=== PATIENT | female | born 1940 | race Caucasian/White ===

== ENCOUNTER 2020-06-14 14:54 | Inpatient (IN) | payer MEDICARE, SELFPAY ==
[~2020-06-14] VITALS: Ht 165.1 cm; Wt 103.1 kg
[2020-06-14 15:45] LABS: HEMATOCRIT 43.7 % (37.0-47.0); MEAN CORPUSCULAR HGB 29.2 pg (27.0-31.0); MEAN CORPUSCULAR HGB CONC 31.1 g/dl (33.0-37.0); MEAN PLATELET VOLUME 12.1 fl (9.6-12.3); PLATELET COUNT AUTOMATED 176 10*3/uL (130-400); RED BLOOD COUNT 4.65 10*6/uL (4.10-5.10); RED CELL DISTRI WIDTH 13.1 % (0-14.5)
[2020-06-14 15:58] LABS: ACT PARTIAL THROMBO TIME 30.3 SECONDS (20.0-32.1); INTERNATIONAL NORM RATIO 1.1 (2.0-3.5)
[2020-06-14 16:03] LABS: ALBUMIN 3.2 gm/dl (3.1-4.5); CREATININE 2.81 mg/dL (0.55-1.02); POTASSIUM 5.7 mmol/L (3.5-5.1)
[2020-06-14 16:06] LABS: WHITE BLOOD COUNT 43.4 10*3/uL (4.8-10.8)
[2020-06-14 16:07] LABS: TOTAL PROTEIN 7.6 gm/dL (6.4-8.2); TROPONIN I 0.027 ng/ml (<0.045)
[2020-06-14 16:13] LABS: THYROID STIM HORMONE (HS) 1.54 uIU/ml (0.358-4.75)
[2020-06-14 16:40] LABS: TOTAL CELLS COUNTED 100 #CELLS
[2020-06-14 16:41] LABS: BLASTS 1 % (0-0)
[2020-06-14 16:42] LABS: PLATELET SUFFICIENCY NORMAL (NORMAL)
[2020-06-14 17:54] VITALS: BP 132/90
[2020-06-14 18:09] LABS: BILIRUBIN Negative (Negative); BLOOD 2+ (Negative); CLARITY Cloudy (Clear); COLOR Yellow (Yellow); GLUCOSE 3+ (Negative); KETONE Negative (Negative); LEUKO ESTERASE Negative (Negative); NITRITE Negative (Negative); SPECIFIC GRAVITY 1.025 (1.001-1.030); UROBILINOGEN 0.2 E.U./dl (0.0-1.0)
[2020-06-14] MEDS ORDERED: LIPITOR40 MG PO (18:23)
[2020-06-14] MEDS ORDERED: AZOPT10 ML OPH (18:23)
[2020-06-14] MEDS ORDERED: COMBIGAN 0.2%-010 ML OP (18:24)
[2020-06-14] MEDS ORDERED: LUMIGAN50 DRP OPH (18:25)
[2020-06-14] MEDS ORDERED: HYDRALAZINE HYD50 MG PO (18:26)
[2020-06-14] MEDS ORDERED: KLOR-CON M2020 ME1 PO (18:27)
[2020-06-14] MEDS ORDERED: COL-RITE250 MG PO (18:28)
[2020-06-14] MEDS ORDERED: FAMOTIDINE40 MG PO (18:29)
[2020-06-14] MEDS ORDERED: ALLOPURINOL100 MG PO (18:30)
[2020-06-14] MEDS ORDERED: BYSTOLIC10 MG PO (18:30)
[2020-06-14] MEDS ORDERED: Zaroxolyn,Diul2.5 MG PO (18:31)
[2020-06-14] MEDS ORDERED: LISINOPRIL2.5 MG PO (18:31)
[2020-06-14] MEDS ORDERED: XARE15TA PO (18:32)
[2020-06-14] MEDS ORDERED: FUROSEMIDE40 MG PO (18:32)
[2020-06-14] MEDS ORDERED: HUMALOG100 UNIT/1 SC (18:34)
[2020-06-14 18:50] LABS: BACTERIA 2+
--- NOTE | 2020-06-14 19:15 | NUR ---
REPORT GIVEN TO ANNELIESE CONDON AT THIS TIME.
[2020-06-14 19:37] VITALS: BP 134/79
--- NOTE | 2020-06-14 19:43 | NUR ---
MARÍA NUMBER [phone]. PATIENT STATES OK TO TALK TO THEM.
[2020-06-14 19:51] VITALS: BP 110/70
--- NOTE | 2020-06-14 20:10 | NUR ---
NOTIFIED DR. PIÑA OF OF 314. STATES HE WILL PUT IN ANOTHER HUMULIN R 10 UNITS.
--- NOTE | 2020-06-14 21:02 | NUR ---
PT. RESTING IN BED. RR EASY AND NON-LABORED. CALL LIGHT WITHIN REACH. WILL CONTINUE TO MONITOR. NO SIGNS OR SYMPTOMS OF DISTRESS AT THIS TIME.
--- NOTE | 2020-06-14 21:08 | NUR ---
PT'S AUNT CALLED IN AND TOLD ME, PT. HAS CHRONIC LEUKEMIA THAT IS STABLE, GOES TO DR. FORTE. PT. ALSO LOST A TOOTH LAST WEEK THAT SHE HIT IN JANUARY. PT'S AUNT IS WORRIED THAT THIS MAY BE THE SOURCE OF INFECTION.
--- NOTE | 2020-06-14 22:04 | NUR ---
AUNT CALLED IN- WANTS PTS. PASSWORD TO BE "JOLENE"
[2020-06-14 22:05] VITALS: BP 160/80
--- NOTE | 2020-06-14 22:58 | NUR ---
TALKED TO DR. PIÑA ABOUT BG OF [address] VALDEZ STATES IT WAS GOOD TO GIVE SLIDING SCALE SQ INSULIN AT THIS TIME.
[2020-06-15] VITALS (7 sets, daily range): BP systolic 140–196; BP diastolic 64–99
--- NOTE | 2020-06-15 00:32 | NUR ---
PT. RESTING IN BED, NO DISTRESS NOTED. CALL LIGHT WITHIN REACH. WILL CONTINUE TO MONITOR. NOT ABLE TO REVIEW MEDS.
--- NOTE | 2020-06-15 01:31 | NUR ---
PICTURES TAKEN OF WOUNDS. CHECKED BG AT THIS TIME-311.
--- NOTE | 2020-06-15 03:21 | NUR ---
PT. RESTING IN BED WITH EYES CLOSED, APPEARS TO BE IN NO DISTRESS AT THIS TIME. CALL LIGHT WITHIN REACH. RR EASY AND NON-LABORED. WILL CONTINUE TO MONITOR.
--- NOTE | 2020-06-15 06:57 | NUR ---
PT. RESTING IN BED WITH EYES CLOSED. RR EASY AND NON-LABORED. CALL LIGHT WITHIN REACH. WILL CONTINUE TO MONITOR.
[2020-06-15 07:55] LABS: HEMATOCRIT 39.8 % (37.0-47.0); MEAN CELL VOLUME 93.2 fl (81.0-99.0); MEAN CORPUSCULAR HGB 29.3 pg (27.0-31.0); MEAN CORPUSCULAR HGB CONC 31.4 g/dl (33.0-37.0); MEAN PLATELET VOLUME 11.4 fl (9.6-12.3); NUCLEATED RED BLOOD CELL 0.1 10*3/uL (0.0-0.0); NUCLEATED RED BLOOD CELL 0.2 % (0.0-0.0); PLATELET COUNT AUTOMATED 158 10*3/uL (130-400); RED BLOOD COUNT 4.27 10*6/uL (4.10-5.10); RED CELL DISTRI WIDTH 13.2 % (0-14.5); WHITE BLOOD COUNT 36.8 10*3/uL (4.8-10.8)
--- NOTE | 2020-06-15 08:01 | NUR ---
PT IS CURRENTLY IN ULTRASOUND.
[2020-06-15 08:11] LABS: ALBUMIN 2.6 gm/dl (3.1-4.5); CREATININE 1.47 mg/dL (0.55-1.02); TOTAL PROTEIN 6.5 gm/dL (6.4-8.2)
[2020-06-15 08:12] LABS: INTERNATIONAL NORM RATIO 1.1 (2.0-3.5)
[2020-06-15 08:18] LABS: THYROID STIM HORMONE (HS) 1.87 uIU/ml (0.358-4.75)
--- NOTE | 2020-06-15 08:30 | NUR ---
PT IS NOW BACK FROM US AT THIS TIME.
--- NOTE | 2020-06-15 08:30 | NUR ---
CALL PLACED TO RESIDENT FOR DR. BYNUM, SPOKE WITH DR. TORRES RANKIN ADVISED OF CONSULT.
[2020-06-15 08:52] LABS: POTASSIUM 3.9 mmol/L (3.5-5.1)
--- NOTE | 2020-06-15 09:50 | NUR ---
PT HAS NOT BEEN EVALUATED BY PODIATRY AT THIS TIME. WE WILL HOLD THE ORDER FOR LOTION TO BILAT LEGS.
--- NOTE | 2020-06-15 10:03 | NUR ---
SPOKE TO DR. GALLOWAY ABOUT THE CRITICAL RESULTS OF THE ULTRASOUND.
[2020-06-15 10:35] LABS: TOTAL CELLS COUNTED 100 #CELLS
[2020-06-15 10:36] LABS: PLATELET SUFFICIENCY NORMAL (NORMAL)
--- NOTE | 2020-06-15 11:00 | NUR ---
Spoke to [id number], Garrett, regarding discharge planning needs. Patient lives at home in a small low income apartment alone with her family checking in on her. She is normally independent in her ADLs and ambulates with a cane. No O2 at home. She would like to see how patient works with therapy and how she progresses while here in the hospital to see what her safe discharge plan would be. She is not opposed to rehab but needs to talk to other siblings some of which are in [place]. She is going to look into passport services at home also as she used to work there and knows that her [id number] needs to be put on a waiting list and that it takes time. Discharge plan undecided at this time. Patient requires a 3 midnight stay if rehab route is chosen.
--- NOTE | 2020-06-15 14:00 | NUR ---
A 80, admitted to , under the services of LENARD Smith DO with a diagnosis of METABOLIC ENCEPHALOPATHY. Chief complaint is CONFUSION. Patient arrived via bed from ER. Monitor applied. Initial assessment completed. Vital signs taken and recorded. LENARD SMITH DO notified of admission to the unit. Orders received. See assessment for past medical history, medications and allergies. Patient and/or family oriented to unit. [facility] visitation policy reviewed. Clothing/patient valuable form completed. ROMY HOPKINS
--- NOTE | 2020-06-15 14:42 | NUR ---
CM in to see patient. She states she feels a lot better than she did before. Discussed short term rehab vs home health care services and she would like to think about it. Phoned her [id number] and patient speaking to her. Discharge plan undecided at this time.
--- NOTE | 2020-06-15 16:00 | NUR ---
PT RESTING IN BED. RESPIRATIONS EASY AND UNLABORED ON 2L NC. NO DISTRESS NOTED. ODONNELL PATENT, DRAINING GAURAV URINE. CALL LIGHT IN REACH.
--- NOTE | 2020-06-15 19:48 | NUR ---
DR LEON NOTIFIED THAT PT MED REC WAS UPDATED IN ED WITH MEDS PROVIDED FROM HOME BY PT HENRY. PHYSICIAN ALSO NOTIFIED THAT PT HAS ODONNELL CATHETER FROM ED AND STATES THAT IT IS OKAY TO HAVE ODONNELL CATHETER IN.
--- NOTE | 2020-06-15 20:00 | NUR ---
ASSESSMENT COMPLETE SEE FLOWSHEET. COOPERATIVE. NO C/O VOICED. TOOK PO MEDS WITHOUT DIFFICULTY. ALL SAFETY MEASURES IN PLACE. CALL LIGHT IN REACH.
[2020-06-16] VITALS: BP 160/79
[2020-06-16 07:10] LABS: HEMATOCRIT 38.7 % (37.0-47.0); MEAN CELL VOLUME 95.1 fl (81.0-99.0); MEAN CORPUSCULAR HGB 29.2 pg (27.0-31.0); MEAN CORPUSCULAR HGB CONC 30.7 g/dl (33.0-37.0); MEAN PLATELET VOLUME 11.7 fl (9.6-12.3); NUCLEATED RED BLOOD CELL 0.1 % (0.0-0.0); NUCLEATED RED BLOOD CELL 0.1 10*3/uL (0.0-0.0); PLATELET COUNT AUTOMATED 156 10*3/uL (130-400); RED BLOOD COUNT 4.07 10*6/uL (4.10-5.10); RED CELL DISTRI WIDTH 13.3 % (0-14.5); WHITE BLOOD COUNT 34.7 10*3/uL (4.8-10.8)
[2020-06-16 07:39] LABS: ALBUMIN 2.4 gm/dl (3.1-4.5); CREATININE 1.27 mg/dL (0.55-1.02); POTASSIUM 4.8 mmol/L (3.5-5.1); TOTAL PROTEIN 6.4 gm/dL (6.4-8.2)
[2020-06-16 08:00] LABS: PLATELET SUFFICIENCY NORMAL (NORMAL); TOTAL CELLS COUNTED 100 #CELLS
[2020-06-16 12:00] VITALS: BP 134/62
--- NOTE | 2020-06-16 15:44 | NUR ---
DR ALBA NOTIFIED OF NEW CONSULT FOR RIGHT LEG DVT.NO NEW ORDERS.
[2020-06-16 16:00] VITALS: BP 159/82
[2020-06-16 20:00] VITALS: BP 137/52
--- NOTE | 2020-06-16 20:00 | NUR ---
ASSESSMENT COMPLETE SEE FLOWSHEET. COOPERATIVE. NO C/O VOICED. TOOK PO MEDS WITHOUT DIFFICULTY. ALL SAFETY MEASURES IN PLACE. CALL LIGHT IN REACH.
[2020-06-17] VITALS: BP 140/58
--- NOTE | 2020-06-17 05:10 | NUR ---
WHEN DRINKING FLUIDS PT IS COUGHING. ADVISED TO TAKE SMALL SIPS.
[2020-06-17 06:12] LABS: MEAN CELL VOLUME 95.7 fl (81.0-99.0); MEAN CORPUSCULAR HGB 29.4 pg (27.0-31.0); MEAN CORPUSCULAR HGB CONC 30.8 g/dl (33.0-37.0); MEAN PLATELET VOLUME 11.7 fl (9.6-12.3); PLATELET COUNT AUTOMATED 162 10*3/uL (130-400); RED BLOOD COUNT 4.18 10*6/uL (4.10-5.10); RED CELL DISTRI WIDTH 13.3 % (0-14.5)
[2020-06-17 06:28] LABS: ALBUMIN 2.4 gm/dl (3.1-4.5); CREATININE 1.28 mg/dL (0.55-1.02); POTASSIUM 4.3 mmol/L (3.5-5.1); TOTAL PROTEIN 6.7 gm/dL (6.4-8.2)
--- NOTE | 2020-06-17 06:45 | NUR ---
WBC 47.6 NOTIFIED MD. NO NEW ORDERS AT THIS TIME.
[2020-06-17 06:50] LABS: WHITE BLOOD COUNT 47.6 10*3/uL (4.8-10.8)
[2020-06-17 07:56] LABS: PLATELET SUFFICIENCY NORMAL (NORMAL); TOTAL CELLS COUNTED 100 #CELLS
[2020-06-17 08:00] VITALS: BP 140/96
--- NOTE | 2020-06-17 09:10 | NUR ---
REPORT REC'D FROM TAURUS HENRANDEZ. PT TRANSFERRED TO 4E RM 420 AT THIS TIME FOR +COVID 19 TEST.
--- NOTE | 2020-06-17 11:32 | NUR ---
NOTIFIED AFIB PER CM 120-130s CONSISTENTLY.
[2020-06-17 12:00] VITALS: BP 142/88
--- NOTE | 2020-06-17 12:04 | NUR ---
CARDIZEM GIVEN PER ORDERS. HR NOW 70-80s PER CM.
--- NOTE | 2020-06-17 12:40 | NUR ---
ON FLOOR, NOTIFIED OF NEW CONSULT. REQUESTING COVID LAB PANEL, ABG, AND CXR.
[2020-06-17 13:17] LABS: ABG BASE EXCESS -0.1 mmol/L (-2.0-2.0); ARTERIAL BLOOD GAS PH 7.456 (7.35-7.45)
[2020-06-17 16:00] VITALS: BP 148/64
[2020-06-17 20:00] VITALS: BP 123/64
--- NOTE | 2020-06-17 20:55 | NUR ---
PT SLEEPING IN BED, AWAKENS EASILY. HOB ELEVATED. REPOSITIONED FOR COMFORT. TOLERATED ROUTINE MED WITH NO PROBLEM. BSG-244, SEE EMAR. OXYGEN IN USE. CALL LIGHT IN REACH. SEE SHIFT ASSESSMENT.
[2020-06-18] VITALS: BP 152/79
--- NOTE | 2020-06-18 00:15 | NUR ---
RESTING IN BED WITH EYES CLOSED. RESPEASY AND REGULAR. CALL LIGHT IN REACH. BED ALARM ON.
--- NOTE | 2020-06-18 05:37 | NUR ---
TOLERATED ROUTINE MED WITH NO PROBLEM.BSG-258, SEE EMAR. CALL LIGHT IN REACH. BED ALARM ON.
[2020-06-18 08:00] VITALS: BP 143/62
[2020-06-18 08:21] LABS: MEAN CELL VOLUME 94.4 fl (81.0-99.0); MEAN CORPUSCULAR HGB 29.8 pg (27.0-31.0); MEAN CORPUSCULAR HGB CONC 31.5 g/dl (33.0-37.0); MEAN PLATELET VOLUME 11.8 fl (9.6-12.3); PLATELET COUNT AUTOMATED 170 10*3/uL (130-400); RED BLOOD COUNT 4.13 10*6/uL (4.10-5.10); RED CELL DISTRI WIDTH 13.2 % (0-14.5)
[2020-06-18 08:32] LABS: WHITE BLOOD COUNT 55.7 10*3/uL (4.8-10.8)
--- NOTE | 2020-06-18 08:33 | NUR ---
LAB CALLED WITH CRITICAL WBC OF 55.7. NOTIFIED.
[2020-06-18 08:37] LABS: ALBUMIN 2.1 gm/dl (3.1-4.5); CREATININE 1.35 mg/dL (0.55-1.02); POTASSIUM 3.8 mmol/L (3.5-5.1); TOTAL PROTEIN 7.1 gm/dL (6.4-8.2)
--- NOTE | 2020-06-18 08:45 | NUR ---
PHYSICAL THERAPY Attempted to see pt for eval pt being seen by respiratory will follow Celena Le PT
[2020-06-18 08:48] LABS: TOTAL CELLS COUNTED 100 #CELLS
[2020-06-18 08:49] LABS: BURR CELLS FEW; PLATELET SUFFICIENCY NORMAL (NORMAL); ROULEAUX SLIGHT
--- NOTE | 2020-06-18 09:20 | NUR ---
PHYSICAL THERAPY Attempted to see pt for eval currently nurseMD and speech therapy in seeing pt will follow Celena Le PT
--- NOTE | 2020-06-18 09:41 | NUR ---
SPEECH IN FOR BED SIDE EVAL.
--- NOTE | 2020-06-18 09:50 | NUR ---
PHYSICAL THERAPY Physical Therapy evaluation completed on 4th floor with full evaluation to follow. Recommend physical therapy per plan of care and SNF upon discharge. Thank you for this referral. Celena Le PT
--- NOTE | 2020-06-18 09:59 | NUR ---
SPEECH PATHOLOGY Patient seen this am for bedside swallowing evaluation as per orders. Patient COVID-positive, clinician wore full PPT with PAPR. Admitted for change in mental status and confusion. Nurse reported that she had coughed with liquids, prompting order for swallowing evaluation. Past history significant for AFIB, HTN, DM, heart failure. Patient on o2 by canula. She was seated upright 90 degrees in bed. She consumed oatmeal, milk, orange juice, thin liquid water, marshall, and armenian muffin. No s/s of aspiration or coughing observed during meal. She consumed several pills, one at a time, with thin liquid water by straw with no overt difficulty or coughing. She exhibited one slight dry cough after last pill, did not appear related to swallowing. Oral skills all within functional limits with mild tremor observed in jaw at times. No therapy indicated at this time. Rogelio Diallo MA CCC-PRINTING GREY CLOTH TENDER
[2020-06-18 10:21] LABS: ABG BASE EXCESS -0.3 mmol/L (-2.0-2.0); ARTERIAL BLOOD GAS PH 7.422 (7.35-7.45)
--- NOTE | 2020-06-18 11:06 | NUR ---
Patient referral faxed to [facility] for covid positive unit. Waiting on review/acceptance.
[2020-06-18 12:00] VITALS: BP 138/68
--- NOTE | 2020-06-18 12:30 | NUR ---
SISTER CALLED, UPDATED ON STATUS.
--- NOTE | 2020-06-18 13:02 | NUR ---
NORCO GIVEN FOR BILAT LEG PAIN. CALL LIGHT IN REACH. WILL MONITOR
--- NOTE | 2020-06-18 13:03 | NUR ---
BSG 382. NOTIFIED.
--- NOTE | 2020-06-18 13:21 | NUR ---
Spoke to daughter, Garrett. Updated on discharge planning status and the difficulty in finding nursing homes to take + COVID patients. Explained there is a referral to [facility] in [place]. Just awaiting acceptance. Will keep daughter updated.
--- NOTE | 2020-06-18 14:00 | NUR ---
PER PT, NOROC WAS EFFECTIVE BUT CAUSED AN UPSET STOMACH. DENIED NEED FOR ZOFRAN. WILL MONITOR. CALL LIGHT IN REACH.
--- NOTE | 2020-06-18 14:50 | NUR ---
[facility] stating they have no open beds on their covid unit today so patient is on their waiting list.
--- NOTE | 2020-06-18 15:15 | NUR ---
Occupational Therapy evaluation completed on four with full evaluation to follow. Recommend occupational therapy per plan of care and SNF upon discharge. Thank you for this referral. Dahiana Miramontes OTR/L
[2020-06-18 16:03] VITALS: BP 156/65
[2020-06-18 20:00] VITALS: BP 147/69
--- NOTE | 2020-06-18 21:00 | NUR ---
PT IS ASLEEP IN BED AT THIS TIME. RESPS ARE EASY AND NONLABORED. BED LOW, CALL LIGHT WITHIN REACH. VITAL WNL. WILL CONTINUE TO MONITOR.
[2020-06-19] VITALS: BP 157/87
[2020-06-19 06:49] LABS: HEMATOCRIT 38.6 % (37.0-47.0); MEAN CELL VOLUME 92.8 fl (81.0-99.0); MEAN CORPUSCULAR HGB 29.1 pg (27.0-31.0); MEAN CORPUSCULAR HGB CONC 31.3 g/dl (33.0-37.0); MEAN PLATELET VOLUME 12.4 fl (9.6-12.3); PLATELET COUNT AUTOMATED 216 10*3/uL (130-400); RED BLOOD COUNT 4.16 10*6/uL (4.10-5.10)
[2020-06-19 07:06] LABS: CREATININE 1.26 mg/dL (0.55-1.02); POTASSIUM 3.8 mmol/L (3.5-5.1); TOTAL PROTEIN 6.8 gm/dL (6.4-8.2)
[2020-06-19 08:00] VITALS: BP 142/38
[2020-06-19 08:13] LABS: TOTAL CELLS COUNTED 100 #CELLS
[2020-06-19 08:14] LABS: PLATELET SUFFICIENCY NORMAL (NORMAL); POLYCHROMASIA SLIGHT; ROULEAUX SLIGHT
[2020-06-19 08:25] LABS: WHITE BLOOD COUNT 71.3 10*3/uL (4.8-10.8)
[2020-06-19 12:00] VITALS: BP 143/71
--- NOTE | 2020-06-19 12:30 | NUR ---
OT NOTE Pt was seen this P.M. 1:1 for 30 minute OT session. Upon arrival pt was supine in bed. Pt identified by name and and had complaints of 10/10 B foot pain. Pt presented to therapy with continuous 2L-O2 via NC which she remained on throughout the entire session. Pt's SpO2 read 99% and heart rate 80 bpm. Pt transferred supine to sit EOB with maxA X 2. While sitting EOB requested for pt to crescencio B socks and pt was unable. Educated pt on compensatory technique of bringing leg up to bed level, pt was still unable resulting in maxA to crescencio. Pt completed multiple sit to stand transfers from bed level with maxA X 2 and use of w/w for UE support. Challenged pt's static standing tolerance needed for increased I in self care tasks and enhanced endurance. Pt was able to tolerate aprox 25 seconds the first attempt and 60 seconds the second attempt before sitting due to quick onset of fatigue. Throughout pt's SpO2 stayed within functional limits. While sitting EOB pt completed BUE towel exercises with min resistance over all planes for 1 X 10 to increase and restore maximum functional strength. Pt tolerated well. Pt then transferred back into bed sit to supine with maxA X 2 and was repositioned with maxA x 2. There she was left with call light in hand, tray table in place, and phone in reach. Continue with rec D/C plan to SNF. Throughout entire session airborne precautions were maintained. GAVINO Emery/Annie
--- NOTE | 2020-06-19 12:34 | NUR ---
PHYSICAL THERAPY TREATMENT TIME: IN 12:00 PM - OUT 12:30 PM 30 MINUTES Patient presented to therapy in supine in room 420-1 who is POSITIVE COVID-19. Patient is on 2 liters of spO2 VIA NASAL CANULA. Patient has a catheter, Patient does not have an infusing IV a this time. Patient gives informed consent for treatment. Patient was identified by name and on wristband. Patient performed supine <> sitting on EOB with MAX A X 2. Patient sat on EOB with SBA - CGA. Patient completed STS x 3 with MAX A X 2 each time with verbal cues for upright posture, Locking knees into extension to prevent knees from buckling and pushing down on Walker with Hands. Patient stood for the 1st time 30 seconds, the 2nd time 20 seconds, and the 3rd time 1 minute in length. Patient required CGA X 2 to MIN A X 2 for the 3 standing tolerances. Patient sat on EOB and performed seated bilateral LE ther ex, including LAQs and marches 2 x 10 reps each, for strengthening the LEs to improve patient's functional mobility. Patient completed sit to supine in bed with MAX A X 2. Patient was moved up to head of bed with MAX A X 2 with sheet. Patient was left in supine with head of bed elevated and bed alarm on. Patient's call light left within reach of patient. Patient was 1:1 with this BAND SAW FILER for 30 minutes total. GAVINO RIVAS PRESENT WITNESS TO THIS TREATMENT. PAPR, MASK, GOOGLES, GLOVES, AND GOWN DONNED AND DOFFED for treating this patient. STEPHANIE DOWLING BAND SAW FILER
--- NOTE | 2020-06-19 14:19 | NUR ---
[facility] stating patient is now 2nd on the list for getting a bed in the covid unit. Notifed CM
[2020-06-19 16:00] VITALS: BP 124/43
[2020-06-20] VITALS: BP 145/48
--- NOTE | 2020-06-20 02:39 | NUR ---
24 HR chart check completed.
--- NOTE | 2020-06-20 04:00 | NUR ---
SLEEPING. NO ACUTE DISTRESS NOTED.
[2020-06-20 07:34] LABS: HEMATOCRIT 39.2 % (37.0-47.0); MEAN CELL VOLUME 94.9 fl (81.0-99.0); MEAN CORPUSCULAR HGB 29.3 pg (27.0-31.0); MEAN CORPUSCULAR HGB CONC 30.9 g/dl (33.0-37.0); MEAN PLATELET VOLUME 12.5 fl (9.6-12.3); PLATELET COUNT AUTOMATED 236 10*3/uL (130-400); RED BLOOD COUNT 4.13 10*6/uL (4.10-5.10); RED CELL DISTRI WIDTH 13.2 % (0-14.5)
[2020-06-20 07:39] LABS: WHITE BLOOD COUNT 79.3 10*3/uL (4.8-10.8)
[2020-06-20 07:53] LABS: ALBUMIN 2.1 gm/dl (3.1-4.5); CREATININE 1.51 mg/dL (0.55-1.02); POTASSIUM 4.1 mmol/L (3.5-5.1); TOTAL PROTEIN 6.6 gm/dL (6.4-8.2)
[2020-06-20 08:00] VITALS: BP 152/66
[2020-06-20 08:09] LABS: PLATELET SUFFICIENCY NORMAL (NORMAL); TOTAL CELLS COUNTED 100 #CELLS
--- NOTE | 2020-06-20 08:42 | NUR ---
Patient no longer qualifies for LTACH covid positive unit for [facility]. Contacted Grisel at [facility] and faxed referral for their covid unit. Waiting on review/acceptance.
[2020-06-20] MEDS ORDERED: DECADRON4 MG PO (11:38)
--- NOTE | 2020-06-20 11:41 | NUR ---
Spoke to daughter, Garrett, regarding patient not meeting criteria for [facility]. [facility] is accepting COVID patients. She wishes for her mom to NOT go to [facility]. Discussed other facilities that are taking positive COVID patient and she would like a referral sent to [facility]. associate financial planner notified.
[2020-06-20 12:00] VITALS: BP 152/68
--- NOTE | 2020-06-20 14:00 | NUR ---
OT NOTE Pt was seen this P.M. 1:1 for 28 minute OT session. Upon arrival pt was supine in bed. Pt identified by name and and had no complaints at this time. Pt presented to therapy on room air however she was instructed by her nurse to place her NC back on which was 2L-O2 via NC. Pt transferred supine to sit EOB with Alexei X 1 for assist with upper body. Sit to stand completed from bed level with maxA X 2 and use of w/w for UE support. Challenged pt's static standing tolerance needed for increased I in self care tasks and functional transfers. Pt was able to tolerate aprox 4 minutes at a time before sitting due to fatigue. Functional mobility completed to bathroom door and back with CGA and use of w/w. Upon arrival back to the EOB pt sat while completing BUE towel exercises over all planes for 1 X 10 with min resistance to increase and restore maximum functional strength. Pt transferred back into bed sit to supine with Alexei for assist with BLE's. There she was left with call light in hand, tray table in place, and phone in reach. Continue with rec D/C plan to SNF. Throughout entire session airborne precautions were maintained. GAVINO Emery/Annie
--- NOTE | 2020-06-20 14:00 | NUR ---
PHYSICAL THERAPY TREATMETN TIME : OUT 1355 25 MINUTES TOTAL Patient presented to therapy in supine in bed with head of bed elevated and bed alarm not on. Patient reports no pain. Patient gives informed consent for treatment. Patient was identified by name and on wristband. Patient has catheter and no IVs at this time. Patient performed supine <> sitting on EOB with MIN A X 1. Patient sat on EOB with SBA. Patient completed STS from EOB with MAX A X 2 and verbal cues for proper hand placement. Patient performed standing tolerance for a total of 4 minutes at Walker with CGA- SBA. Patient ambulated 10' x 1 with Walker and [facility] witn no LOB and verbal cues for upright posture , locking knees with wt bearing and pushing down on Walker with hands. Patient then sat on EOB and performed seated venancio. LE ther ex x 15 reps each, including LAQs and marches for strengthening. Patient then transferred back to supine in bed with MIN A X 1 mostly for assistance with LEs. Patient was left in supine in bed with head of bed elevated and call light within reach. Patient tray table in front of her with lunch on it. STEPHANIE DOWLING AUTO PARTS SALESPERSON
--- NOTE | 2020-06-20 14:42 | NUR ---
Spoke to daughter, Garrett, to inform her [facility] is closing their COVID unit on the . [place] [facility] at this time is not able to accept patient. [facility] is able to accept patient at this time. Daughter would like to do some research and get back to . Daughter aware patient is discharged today. Awaiting return call.
--- NOTE | 2020-06-20 15:11 | NUR ---
Patient is discharged to [facility] via [place] at 4:00 PM. NH, nursing/wardrobe specialist all notified. test engineering manager will discuss with patients daughter
--- NOTE | 2020-06-20 15:46 | NUR ---
Spoke to daughter, Garrett, regarding [facility]. She wanted to see if patient could go to [facility]. fairing worker reached out to Manuela at [facility] and they are not accepting positive COVID patients. Daughter is agreeable to [facility] at this time. Informed daughter patient will be transported to [facility] and she verbalized an understanding. She was calling her mother to discuss.
--- NOTE | 2020-06-20 16:29 | NUR ---
Discharge instructions reviewed with patient/family/NH. Patient receptive and verbalizes understanding. Follow-up care arranged. Written instructions given to patient/family. FERN MONTANO
--- NOTE | 2020-06-21 07:52 | NUR ---
OCCUPATIONAL THERAPY CO-SIGN I approve of the Occupational Therapy notes written above. BERNARDO FRIEDMAN, OTR/L
--- NOTE | 2020-06-21 07:53 | NUR ---
PHYSICAL THERAPY CO-SIGN I approve of the Physical Therapy notes written above. Celena Le PT
== END 2020-06-20 16:39 | disposition other institution (70) | DRG 177 ==
LOC: ED 14:54 → EDHOLD 17:15 → 4E 17:15 → 5E 06-15 13:02 → 4E 06-17 08:25
PROVIDERS: Emergency Medicine; Family Medicine; Internal Medicine; Internal Medicine Critical Care Medicine; Student in an Organized Health Care Education/Training Program; ADMIT Internal Medicine; ATTEND Internal Medicine
PROC: 0HBRXZZ Excision of Toe Nail, External Approach (ICD-10-PCS; principal; 2020-06-17)
PROC: 0HBRXZZ Excision of Toe Nail, External Approach (ICD-10-PCS; 2020-06-17)
PROC: 0HBRXZZ Excision of Toe Nail, External Approach (ICD-10-PCS; 2020-06-17)
PROC: 0HBRXZZ Excision of Toe Nail, External Approach (ICD-10-PCS; 2020-06-17)
PROC: 0HBRXZZ Excision of Toe Nail, External Approach (ICD-10-PCS; 2020-06-17)
PROC: 0HBRXZZ Excision of Toe Nail, External Approach (ICD-10-PCS; 2020-06-17)
PROC: 0HBRXZZ Excision of Toe Nail, External Approach (ICD-10-PCS; 2020-06-17)
PROC: 0HBRXZZ Excision of Toe Nail, External Approach (ICD-10-PCS; 2020-06-17)
PROC: 0HBRXZZ Excision of Toe Nail, External Approach (ICD-10-PCS; 2020-06-17)
PROC: 0HBRXZZ Excision of Toe Nail, External Approach (ICD-10-PCS; 2020-06-17)
DX: U07.1 COVID-19 (principal); E11.00 Type 2 diabetes mellitus with hyperosmolarity without nonketotic hyperglycemic-hyperosmolar coma (NKHHC); G93.41 Metabolic encephalopathy; N17.0 Acute kidney failure with tubular necrosis; J96.01 Acute respiratory failure with hypoxia; J12.89 Other viral pneumonia; E87.1 Hypo-osmolality and hyponatremia; E87.2 Acidosis; N39.0 Urinary tract infection, site not specified; D68.59 Other primary thrombophilia; C91.10 Chronic lymphocytic leukemia of B-cell type not having achieved remission; I82.401 Acute embolism and thrombosis of unspecified deep veins of right lower extremity; E87.5 Hyperkalemia; E11.65 Type 2 diabetes mellitus with hyperglycemia; E83.41 Hypermagnesemia; M1A.9XX0 Chronic gout, unspecified, without tophus (tophi); I48.0 Paroxysmal atrial fibrillation; G51.0 Bell's palsy; E78.5 Hyperlipidemia, unspecified; I10 Essential (primary) hypertension; K21.9 Gastro-esophageal reflux disease without esophagitis; E78.00 Pure hypercholesterolemia, unspecified; E66.09 Other obesity due to excess calories; R31.9 Hematuria, unspecified; B35.1 Tinea unguium; Z79.01 Long term (current) use of anticoagulants; Z79.4 Long term (current) use of insulin; Z82.49 Family history of ischemic heart disease and other diseases of the circulatory system; Z80.0 Family history of malignant neoplasm of digestive organs; Z79.899 Other long term (current) drug therapy; Z92.21 Personal history of antineoplastic chemotherapy; Z68.37 Body mass index [BMI] 37.0-37.9, adult

== ENCOUNTER 2021-02-09 20:28 | Inpatient (IN) | payer MEDICARE, SELFPAY ==
[~2021-02-09] VITALS: Ht 154.9 cm; Wt 102.8 kg
[~2021-02-09 20:28] MED LIST: ALLOPURINOL100 MG PO; AZOPT10 ML OPH; BYSTOLIC10 MG PO; COL-RITE250 MG PO; COMBIGAN 0.2%-010 ML OP; DECADRON4 MG PO; FAMOTIDINE40 MG PO; FUROSEMIDE40 MG PO; HUMALOG100 UNIT/1 SC; HYDRALAZINE HYD50 MG PO; KLOR-CON M2020 ME1 PO; LIPITOR40 MG PO; LISINOPRIL2.5 MG PO; LUMIGAN50 DRP OPH; XARE15TA PO; Zaroxolyn,Diul2.5 MG PO
[2021-02-09 20:48] VITALS: BP 165/69
[2021-02-09 21:59] LABS: MEAN CELL VOLUME 98.3 fl (81.0-99.0); MEAN CORPUSCULAR HGB 30.1 pg (27.0-31.0); MEAN CORPUSCULAR HGB CONC 30.6 g/dl (33.0-37.0); NUCLEATED RED BLOOD CELL 0.1 % (0.0-0.0); PLATELET COUNT AUTOMATED 172 10*3/uL (130-400); RED BLOOD COUNT 3.56 10*6/uL (4.10-5.10); RED CELL DISTRI WIDTH 14.4 % (0-14.5); WHITE BLOOD COUNT 26.3 10*3/uL (4.8-10.8)
[2021-02-09 22:16] LABS: ALBUMIN 2.9 gm/dl (3.1-4.5); CREATININE 1.85 mg/dL (0.55-1.02); POTASSIUM 4.6 mmol/L (3.5-5.1); TOTAL PROTEIN 6.4 gm/dL (6.4-8.2)
[2021-02-09 22:21] LABS: PLATELET SUFFICIENCY NORMAL (NORMAL); TOTAL CELLS COUNTED 100 #CELLS
[2021-02-09 22:26] LABS: TROPONIN I 0.094 ng/ml (<0.045)
[2021-02-09 23:59] LABS: BILIRUBIN Negative (Negative); BLOOD 3+ (Negative); CLARITY Turbid (Clear); COLOR Yellow (Yellow); GLUCOSE Negative (Negative); KETONE Negative (Negative); LEUKO ESTERASE 3+ (Negative); NITRITE Negative (Negative); PH 5.5 (4.5-8.0); SPECIFIC GRAVITY 1.015 (1.001-1.030)
[2021-02-10] VITALS (7 sets, daily range): BP systolic 101–158; BP diastolic 43–80
[2021-02-10 00:17] LABS: BACTERIA 3+; WBC TNTC wbc/hpf (0-5)
[2021-02-10 04:16] LABS: HEMATOCRIT 30.2 % (37.0-47.0); MEAN CELL VOLUME 97.1 fl (81.0-99.0); MEAN CORPUSCULAR HGB 30.2 pg (27.0-31.0); MEAN CORPUSCULAR HGB CONC 31.1 g/dl (33.0-37.0); NUCLEATED RED BLOOD CELL 0.1 % (0.0-0.0); PLATELET COUNT AUTOMATED 148 10*3/uL (130-400); RED BLOOD COUNT 3.11 10*6/uL (4.10-5.10); RED CELL DISTRI WIDTH 14.3 % (0-14.5); WHITE BLOOD COUNT 22.2 10*3/uL (4.8-10.8)
[2021-02-10 04:28] LABS: CREATININE 1.58 mg/dL (0.55-1.02); POTASSIUM 4.3 mmol/L (3.5-5.1)
[2021-02-10 06:50] LABS: OVALOCYTES FEW; PLATELET SUFFICIENCY NORMAL (NORMAL); POLYCHROMASIA SLIGHT; TOTAL CELLS COUNTED 100 #CELLS
[2021-02-11] VITALS: BP 145/49
[2021-02-11 06:18] LABS: HEMATOCRIT 34.6 % (37.0-47.0); MEAN CELL VOLUME 97.2 fl (81.0-99.0); MEAN CORPUSCULAR HGB 30.3 pg (27.0-31.0); MEAN CORPUSCULAR HGB CONC 31.2 g/dl (33.0-37.0); MEAN PLATELET VOLUME 10.7 fl (9.6-12.3); NUCLEATED RED BLOOD CELL 0.1 % (0.0-0.0); PLATELET COUNT AUTOMATED 164 10*3/uL (130-400); RED BLOOD COUNT 3.56 10*6/uL (4.10-5.10); RED CELL DISTRI WIDTH 14.1 % (0-14.5)
[2021-02-11 06:39] LABS: ALBUMIN 2.7 gm/dl (3.1-4.5); CREATININE 1.49 mg/dL (0.55-1.02); POTASSIUM 4.3 mmol/L (3.5-5.1); TOTAL PROTEIN 6.4 gm/dL (6.4-8.2)
[2021-02-11 07:19] LABS: TOTAL CELLS COUNTED 100 #CELLS
[2021-02-11 07:20] LABS: OVALOCYTES FEW; PLATELET SUFFICIENCY NORMAL (NORMAL); POLYCHROMASIA SLIGHT; ROULEAUX SLIGHT
[2021-02-11 07:21] LABS: TARGET CELLS FEW
[2021-02-11 08:00] VITALS: BP 158/77
[2021-02-11 12:00] VITALS: BP 143/59
[2021-02-11] MEDS ORDERED: METOPROLOL TART50 M1 PO (13:11)
[2021-02-11] MEDS ORDERED: LANTUS SOL100 UNIT/1 SC (14:45)
[2021-02-11 16:00] VITALS: BP 140/63
[2021-02-11 20:00] VITALS: BP 152/88
[2021-02-12 00:01] VITALS: BP 114/57
[2021-02-12 06:20] LABS: HEMATOCRIT 29.4 % (37.0-47.0); MEAN CORPUSCULAR HGB CONC 30.6 g/dl (33.0-37.0); MEAN PLATELET VOLUME 11.2 fl (9.6-12.3); PLATELET COUNT AUTOMATED 139 10*3/uL (130-400); RED CELL DISTRI WIDTH 14.3 % (0-14.5); WHITE BLOOD COUNT 25.8 10*3/uL (4.8-10.8)
[2021-02-12 07:29] LABS: TOTAL CELLS COUNTED 100 #CELLS
[2021-02-12 07:31] LABS: PLATELET SUFFICIENCY NORMAL (NORMAL); POLYCHROMASIA SLIGHT; ROULEAUX SLIGHT
[2021-02-12 08:00] VITALS: BP 139/54
[2021-02-12 12:00] VITALS: BP 154/59
[2021-02-12 16:00] VITALS: BP 152/51
[2021-02-12 20:00] VITALS: BP 130/51
[2021-02-13] VITALS: BP 130/50; BP 137/42
[2021-02-13 06:43] LABS: HEMATOCRIT 30.3 % (37.0-47.0); MEAN CELL VOLUME 95.3 fl (81.0-99.0); MEAN CORPUSCULAR HGB 29.9 pg (27.0-31.0); MEAN CORPUSCULAR HGB CONC 31.4 g/dl (33.0-37.0); MEAN PLATELET VOLUME 11.2 fl (9.6-12.3); NUCLEATED RED BLOOD CELL 0.1 % (0.0-0.0); PLATELET COUNT AUTOMATED 152 10*3/uL (130-400); RED BLOOD COUNT 3.18 10*6/uL (4.10-5.10); RED CELL DISTRI WIDTH 14.2 % (0-14.5); WHITE BLOOD COUNT 23.9 10*3/uL (4.8-10.8)
[2021-02-13 06:59] LABS: CREATININE 1.37 mg/dL (0.55-1.02); POTASSIUM 4.1 mmol/L (3.5-5.1)
[2021-02-13 07:26] LABS: TOTAL CELLS COUNTED 100 #CELLS
[2021-02-13 07:27] LABS: OVALOCYTES FEW; PLATELET SUFFICIENCY LOW (NORMAL); POLYCHROMASIA SLIGHT
[2021-02-13 08:00] VITALS: BP 140/53
[2021-02-13 08:55] VITALS: BP 142/54
[2021-02-13 12:00] VITALS: BP 141/47
[2021-02-13] MEDS ORDERED: INVANZ1 GM/50 ML IV (15:08)
[2021-02-13 16:00] VITALS: BP 138/57
[2021-02-13 20:00] VITALS: BP 145/59
[2021-02-14] VITALS: BP 151/47
[2021-02-14 06:23] LABS: HEMATOCRIT 32.1 % (37.0-47.0); MEAN CELL VOLUME 95.5 fl (81.0-99.0); MEAN CORPUSCULAR HGB 29.5 pg (27.0-31.0); MEAN CORPUSCULAR HGB CONC 30.8 g/dl (33.0-37.0); MEAN PLATELET VOLUME 11.3 fl (9.6-12.3); PLATELET COUNT AUTOMATED 186 10*3/uL (130-400); RED BLOOD COUNT 3.36 10*6/uL (4.10-5.10); RED CELL DISTRI WIDTH 14.4 % (0-14.5); WHITE BLOOD COUNT 25.9 10*3/uL (4.8-10.8)
[2021-02-14 06:38] LABS: ALBUMIN 2.4 gm/dl (3.1-4.5); POTASSIUM 3.8 mmol/L (3.5-5.1)
[2021-02-14 06:41] LABS: CREATININE 1.27 mg/dL (0.55-1.02); TOTAL PROTEIN 6.1 gm/dL (6.4-8.2)
[2021-02-14 07:34] LABS: OVALOCYTES FEW; PLATELET SUFFICIENCY NORMAL (NORMAL); TOTAL CELLS COUNTED 100 #CELLS
[2021-02-14 08:00] VITALS: BP 182/66
[2021-02-14 12:00] VITALS: BP 174/64
[2021-02-14 16:00] VITALS: BP 168/60
[2021-02-14] MEDS ORDERED: METOPROLOL SUCC25 M2 PO (16:19)
[2021-02-14] MEDS ORDERED: ASPIRIN ADULT L81 M2 PO (16:19)
== END 2021-02-14 19:04 | DRG 871 ==
LOC: ED 20:28 → EDHOLD 02-10 00:51 → 5E 02-10 00:51
PROVIDERS: Emergency Medicine; Internal Medicine; Registered Nurse; Social Worker Clinical; Student in an Organized Health Care Education/Training Program; ADMIT Family Medicine; ATTEND Family Medicine
PROC: 05HB33Z Insertion of Infusion Device into Right Basilic Vein, Percutaneous Approach (ICD-10-PCS; principal; 2021-02-14)
DX: A41.51 Sepsis due to Escherichia coli [E. coli] (principal); G93.41 Metabolic encephalopathy; N17.0 Acute kidney failure with tubular necrosis; E44.0 Moderate protein-calorie malnutrition; I24.8 Other forms of acute ischemic heart disease; N39.0 Urinary tract infection, site not specified; Z68.41 Body mass index [BMI] 40.0-44.9, adult; R65.20 Severe sepsis without septic shock; D64.9 Anemia, unspecified; E66.9 Obesity, unspecified; K21.9 Gastro-esophageal reflux disease without esophagitis; I48.91 Unspecified atrial fibrillation; J02.9 Acute pharyngitis, unspecified; E78.5 Hyperlipidemia, unspecified; R31.9 Hematuria, unspecified; E11.65 Type 2 diabetes mellitus with hyperglycemia; M10.9 Gout, unspecified; N18.32 Chronic kidney disease, stage 3b; G25.0 Essential tremor; S01.20XA Unspecified open wound of nose, initial encounter; S21.002A Unspecified open wound of left breast, initial encounter; S21.001A Unspecified open wound of right breast, initial encounter; I12.9 Hypertensive chronic kidney disease with stage 1 through stage 4 chronic kidney disease, or unspecified chronic kidney disease; E11.22 Type 2 diabetes mellitus with diabetic chronic kidney disease; S31.103A Unspecified open wound of abdominal wall, right lower quadrant without penetration into peritoneal cavity, initial encounter; R74.01 Elevation of levels of liver transaminase levels; Z20.822 Contact with and (suspected) exposure to COVID-19; Z88.6 Allergy status to analgesic agent; Z86.16 Personal history of COVID-19; Z82.49 Family history of ischemic heart disease and other diseases of the circulatory system; Z80.0 Family history of malignant neoplasm of digestive organs; Z79.4 Long term (current) use of insulin; X58.XXXA Exposure to other specified factors, initial encounter; Y93.89 Activity, other specified; Y92.89 Other specified places as the place of occurrence of the external cause; Y99.8 Other external cause status

== ENCOUNTER 2021-03-01 01:08 | Inpatient (IN) | payer MEDICARE ==
[2021-03-01] VITALS (9 sets, daily range): BP systolic 125–180; BP diastolic 42–66
[~2021-03-01] VITALS: Ht 165.1 cm; Wt 98.6 kg
[~2021-03-01 01:08] MED LIST changes: +ASPIRIN ADULT L81 M2 PO; +INVANZ1 GM/50 ML IV; +LANTUS SOL100 UNIT/1 SC; +METOPROLOL SUCC25 M2 PO; +METOPROLOL TART50 M1 PO
[2021-03-01 01:41] LABS: HEMATOCRIT 34.3 % (37.0-47.0); MEAN CELL VOLUME 96.9 fl (81.0-99.0); MEAN CORPUSCULAR HGB 29.7 pg (27.0-31.0); MEAN CORPUSCULAR HGB CONC 30.6 g/dl (33.0-37.0); MEAN PLATELET VOLUME 10.4 fl (9.6-12.3); PLATELET COUNT AUTOMATED 217 10*3/uL (130-400); RED BLOOD COUNT 3.54 10*6/uL (4.10-5.10); RED CELL DISTRI WIDTH 14.9 % (0-14.5); WHITE BLOOD COUNT 23.9 10*3/uL (4.8-10.8)
[2021-03-01 02:00] LABS: BILIRUBIN Negative (Negative); BLOOD 1+ (Negative); CLARITY Clear (Clear); COLOR Yellow (Yellow); GLUCOSE Negative (Negative); KETONE Negative (Negative); LEUKO ESTERASE 1+ (Negative); NITRITE Negative (Negative); SPECIFIC GRAVITY <= 1.005 (1.001-1.030); UROBILINOGEN 0.2 E.U./dl (0.0-1.0)
[2021-03-01 02:10] LABS: CREATININE 1.23 mg/dL (0.55-1.02); POTASSIUM 3.7 mmol/L (3.5-5.1); TOTAL PROTEIN 6.3 gm/dL (6.4-8.2)
[2021-03-01 02:11] LABS: TROPONIN I 0.023 ng/ml (<0.045)
[2021-03-01 02:16] LABS: THYROID STIM HORMONE (HS) 2.47 uIU/ml (0.358-4.75)
[2021-03-01 02:41] LABS: BACTERIA 1+; RBC 16-20 rbc/hpf (0-2)
[2021-03-01 03:17] LABS: TOTAL CELLS COUNTED 100 #CELLS
[2021-03-01 03:18] LABS: OVALOCYTES MODERATE; PLATELET SUFFICIENCY NORMAL (NORMAL)
[2021-03-01 03:19] LABS: SPHEROCYTES FEW
[2021-03-01 05:20] LABS: ALBUMIN 2.9 gm/dl (3.1-4.5); CREATININE 1.16 mg/dL (0.55-1.02); POTASSIUM 3.7 mmol/L (3.5-5.1); TOTAL PROTEIN 6.1 gm/dL (6.4-8.2)
[2021-03-01 06:24] LABS: ACT PARTIAL THROMBO TIME 42.8 SECONDS (20.0-32.1); INTERNATIONAL NORM RATIO 1.4 (2.0-3.5)
[2021-03-01 06:35] LABS: HEMATOCRIT 34.3 % (37.0-47.0); MEAN CELL VOLUME 96.6 fl (81.0-99.0); MEAN CORPUSCULAR HGB 29.6 pg (27.0-31.0); MEAN CORPUSCULAR HGB CONC 30.6 g/dl (33.0-37.0); MEAN PLATELET VOLUME 11.2 fl (9.6-12.3); PLATELET COUNT AUTOMATED 224 10*3/uL (130-400); RED BLOOD COUNT 3.55 10*6/uL (4.10-5.10); RED CELL DISTRI WIDTH 14.8 % (0-14.5); WHITE BLOOD COUNT 21.4 10*3/uL (4.8-10.8)
[2021-03-01 07:58] LABS: TOTAL CELLS COUNTED 100 #CELLS
[2021-03-01 07:59] LABS: PLATELET SUFFICIENCY NORMAL (NORMAL)
[2021-03-01] MEDS ORDERED: SUNMARK MAGNES250 MG PO (09:48)
[2021-03-01] MEDS ORDERED: IRON325 M1 PO (09:48)
[2021-03-01] MEDS ORDERED: CALCIUM 500 +1 EAC3 PO (09:50)
[2021-03-02] VITALS: BP 157/67
[2021-03-02 06:33] LABS: HEMATOCRIT 32.8 % (37.0-47.0); MEAN CELL VOLUME 96.2 fl (81.0-99.0); MEAN CORPUSCULAR HGB 29.3 pg (27.0-31.0); MEAN CORPUSCULAR HGB CONC 30.5 g/dl (33.0-37.0); MEAN PLATELET VOLUME 10.8 fl (9.6-12.3); PLATELET COUNT AUTOMATED 206 10*3/uL (130-400); RED BLOOD COUNT 3.41 10*6/uL (4.10-5.10); RED CELL DISTRI WIDTH 14.7 % (0-14.5); WHITE BLOOD COUNT 21.1 10*3/uL (4.8-10.8)
[2021-03-02 06:36] LABS: ALBUMIN 2.8 gm/dl (3.1-4.5); BUN 17 mg/dl (7-24); CHLORIDE 107 mmol/L (98-107); CREATININE 0.88 mg/dL (0.55-1.02); POTASSIUM 3.5 mmol/L (3.5-5.1); SGOT/AST 24 IU/L (3-35); SGPT/ALT 17 U/L (12-78); SODIUM 140 mmol/L (136-145)
[2021-03-02 06:37] LABS: ALKALINE PHOSPHATASE 118 U/L (45-117)
[2021-03-02 07:37] LABS: PLATELET SUFFICIENCY NORMAL (NORMAL); TOTAL CELLS COUNTED 100 #CELLS
[2021-03-02 08:00] VITALS: BP 158/62
[2021-03-02 12:00] VITALS: BP 172/66; BP 202/65
[2021-03-02 16:00] VITALS: BP 168/62
[2021-03-02 20:00] VITALS: BP 145/72
[2021-03-03] VITALS: BP 152/116
[2021-03-03 04:00] VITALS: BP 169/64
[2021-03-03 07:29] LABS: BUN 18 mg/dl (7-24); CHLORIDE 108 mmol/L (98-107); POTASSIUM 3.4 mmol/L (3.5-5.1); SODIUM 143 mmol/L (136-145)
[2021-03-03 07:30] LABS: CREATININE 0.91 mg/dL (0.55-1.02)
[2021-03-03 08:00] VITALS: BP 175/85
[2021-03-03 16:00] VITALS: BP 158/53
[2021-03-03 18:00] VITALS: BP 158/53
[2021-03-03 20:00] VITALS: BP 144/68
[2021-03-04] VITALS: BP 142/59
[2021-03-04 06:35] LABS: BUN 16 mg/dl (7-24); CHLORIDE 111 mmol/L (98-107); POTASSIUM 3.5 mmol/L (3.5-5.1); SODIUM 142 mmol/L (136-145)
[2021-03-04 08:00] VITALS: BP 158/62
[2021-03-04 12:00] VITALS: BP 152/70
[2021-03-04] MEDS ORDERED: AMMONIUM LACTA227 GM T (13:25)
[2021-03-04] MEDS ORDERED: LISINOPRIL20 MG PO (13:26)
[2021-03-04 16:00] VITALS: BP 137/47
== END 2021-03-04 17:01 | DRG 70 ==
LOC: ED 01:08 → 5E 03:57 → EDHOLD 03:57 → 5E 07:52
PROVIDERS: Emergency Medicine; Hospitalist; Student in an Organized Health Care Education/Training Program; ADMIT Internal Medicine; ATTEND Internal Medicine
DX: G93.41 Metabolic encephalopathy (principal); N17.0 Acute kidney failure with tubular necrosis; R65.11 Systemic inflammatory response syndrome (SIRS) of non-infectious origin with acute organ dysfunction; E44.0 Moderate protein-calorie malnutrition; I48.21 Permanent atrial fibrillation; C91.10 Chronic lymphocytic leukemia of B-cell type not having achieved remission; N39.0 Urinary tract infection, site not specified; D64.9 Anemia, unspecified; K21.9 Gastro-esophageal reflux disease without esophagitis; N18.32 Chronic kidney disease, stage 3b; G25.0 Essential tremor; E11.42 Type 2 diabetes mellitus with diabetic polyneuropathy; E11.22 Type 2 diabetes mellitus with diabetic chronic kidney disease; Z20.822 Contact with and (suspected) exposure to COVID-19; I12.9 Hypertensive chronic kidney disease with stage 1 through stage 4 chronic kidney disease, or unspecified chronic kidney disease; E11.65 Type 2 diabetes mellitus with hyperglycemia; F03.90 Unspecified dementia, unspecified severity, without behavioral disturbance, psychotic disturbance, mood disturbance, and anxiety; F39 Unspecified mood [affective] disorder; E11.622 Type 2 diabetes mellitus with other skin ulcer; L98.499 Non-pressure chronic ulcer of skin of other sites with unspecified severity; Z79.82 Long term (current) use of aspirin; Z79.4 Long term (current) use of insulin; Z88.5 Allergy status to narcotic agent; Z79.899 Other long term (current) drug therapy; Z82.49 Family history of ischemic heart disease and other diseases of the circulatory system; Z68.36 Body mass index [BMI] 36.0-36.9, adult

== ENCOUNTER → 2021-05-16 | Outpatient (CLI) | payer MEDICARE ==
[~2021-05-16] MED LIST changes: +AMMONIUM LACTA227 GM T; +CALCIUM 500 +1 EAC3 PO; +IRON325 M1 PO; +LISINOPRIL20 MG PO; +SUNMARK MAGNES250 MG PO
[2021-05-16 09:33] LABS: BILIRUBIN Negative (Negative); BLOOD 3+ (Negative); CLARITY Clear (Clear); COLOR Yellow (Yellow); GLUCOSE Negative (Negative); KETONE Negative (Negative); LEUKO ESTERASE 1+ (Negative); NITRITE Negative (Negative); PH 5.5 (4.5-8.0); SPECIFIC GRAVITY 1.015 (1.001-1.030)
[2021-05-16 09:43] LABS: HEMATOCRIT 35.5 % (37.0-47.0); MEAN CELL VOLUME 95.4 fl (81.0-99.0); MEAN CORPUSCULAR HGB 29.3 pg (27.0-31.0); MEAN CORPUSCULAR HGB CONC 30.7 g/dl (33.0-37.0); MEAN PLATELET VOLUME 10.5 fl (9.6-12.3); PLATELET COUNT AUTOMATED 194 10*3/uL (130-400); RED BLOOD COUNT 3.72 10*6/uL (4.10-5.10); RED CELL DISTRI WIDTH 14.1 % (0-14.5); WHITE BLOOD COUNT 18.7 10*3/uL (4.8-10.8)
[2021-05-16 10:06] LABS: ALBUMIN 3.3 gm/dl (3.1-4.5); CREATININE 1.25 mg/dL (0.55-1.02); POTASSIUM 4.5 mmol/L (3.5-5.1)
[2021-05-16 10:33] LABS: FERRITIN 41.5 ng/mL (10.0-291.0); PTH INTACT 86.6 pg/mL (18.5-88.0); VITAMIN D, 25-HYDROXY 29.2 ng/mL (30-100)
[2021-05-16 10:35] LABS: PLATELET SUFFICIENCY NORMAL (NORMAL); TOTAL CELLS COUNTED 100 #CELLS
[2021-05-16 10:46] LABS: BACTERIA 2+; RBC TNTC rbc/hpf (0-2); WBC 16-20 wbc/hpf (0-5)
== END | disposition home or self-care (01) ==
LOC: LAB 09:02
PROVIDERS: ATTEND Internal Medicine Nephrology
DX: N18.32 Chronic kidney disease, stage 3b (principal); D63.1 Anemia in chronic kidney disease; N25.81 Secondary hyperparathyroidism of renal origin; Z79.899 Other long term (current) drug therapy

== ENCOUNTER → 2021-10-18 | Outpatient (CLI) | payer OTHER ==
[2021-10-18 09:10] LABS: HEMATOCRIT 37.3 % (37.0-47.0); MEAN CELL VOLUME 95.2 fl (81.0-99.0); MEAN CORPUSCULAR HGB 30.6 pg (27.0-31.0); MEAN CORPUSCULAR HGB CONC 32.2 g/dl (33.0-37.0); MEAN PLATELET VOLUME 10.4 fl (9.6-12.3); PLATELET COUNT AUTOMATED 199 10*3/uL (130-400); RED BLOOD COUNT 3.92 10*6/uL (4.10-5.10); RED CELL DISTRI WIDTH 12.9 % (0-14.5); WHITE BLOOD COUNT 29.3 10*3/uL (4.8-10.8)
[2021-10-18 09:15] LABS: MANUAL DIFF REFLEX YES
[2021-10-18 09:33] LABS: PLATELET SUFFICIENCY NORMAL (NORMAL); TOTAL CELLS COUNTED 100 #CELLS
[2021-10-18 09:34] LABS: DIFFERENTIAL COMMENT SMUDGE CELLS PRESENT
[2021-10-18 09:48] LABS: URINE CREATININE RANDOM 48.5 mg/dL
[2021-10-18 09:51] LABS: CREATININE 1.5 mg/dL (0.55-1.02); POTASSIUM 4.9 mmol/L (3.5-5.1)
[2021-10-18 09:59] LABS: BILIRUBIN Negative (Negative); BLOOD 2+ (Negative); CLARITY Clear (Clear); COLOR Yellow (Yellow); GLUCOSE Negative (Negative); KETONE Negative (Negative); LEUKO ESTERASE 1+ (Negative); NITRITE Negative (Negative); PH 5.5 (4.5-8.0); VITAMIN D, 25-HYDROXY 26.4 ng/mL (30-100)
[2021-10-18 10:00] LABS: FERRITIN 47.4 ng/mL (10.0-291.0)
[2021-10-18 12:35] LABS: RBC 41-50 rbc/hpf (0-2)
[2021-10-18 12:36] LABS: BACTERIA 2+
== END | disposition home or self-care (01) ==
LOC: LAB 08:40
PROVIDERS: ATTEND Internal Medicine Nephrology
DX: N18.32 Chronic kidney disease, stage 3b (principal); D63.1 Anemia in chronic kidney disease; N25.81 Secondary hyperparathyroidism of renal origin; Z79.899 Other long term (current) drug therapy

== ENCOUNTER → 2022-01-10 | Outpatient (CLI) | payer OTHER ==
[2022-01-10 09:43] LABS: HEMATOCRIT 37.7 % (37.0-47.0); MEAN CORPUSCULAR HGB 30.2 pg (27.0-31.0); MEAN CORPUSCULAR HGB CONC 31.8 g/dl (33.0-37.0); MEAN PLATELET VOLUME 10.5 fl (9.6-12.3); PLATELET COUNT AUTOMATED 195 10*3/uL (130-400); RED BLOOD COUNT 3.97 10*6/uL (4.10-5.10); RED CELL DISTRI WIDTH 12.7 % (0-14.5); WHITE BLOOD COUNT 30.3 10*3/uL (4.8-10.8)
[2022-01-10 09:46] LABS: BILIRUBIN Negative (Negative); BLOOD 1+ (Negative); CLARITY Clear (Clear); COLOR Yellow (Yellow); GLUCOSE 1+ (Negative); KETONE Negative (Negative); LEUKO ESTERASE 1+ (Negative); NITRITE Negative (Negative); PH 6.5 (4.5-8.0); SPECIFIC GRAVITY 1.015 (1.001-1.030)
[2022-01-10 09:47] LABS: MANUAL DIFF REFLEX YES
[2022-01-10 09:55] LABS: URINE CREATININE RANDOM 84.9 mg/dL
[2022-01-10 10:02] LABS: CREATININE 1.5 mg/dL (0.55-1.02); POTASSIUM 4.4 mmol/L (3.5-5.1)
[2022-01-10 10:48] LABS: PLATELET SUFFICIENCY NORMAL (NORMAL); TOTAL CELLS COUNTED 100 #CELLS
[2022-01-10 10:56] LABS: BACTERIA 1+; WBC 21-30 wbc/hpf (0-5)
[2022-01-10 12:03] LABS: VITAMIN D, 25-HYDROXY 24.5 ng/mL (30-100)
[2022-01-10 12:04] LABS: FERRITIN 45.5 ng/mL (10.0-291.0)
== END | disposition home or self-care (01) ==
LOC: LAB 09:07
PROVIDERS: ATTEND Internal Medicine Nephrology
DX: N18.32 Chronic kidney disease, stage 3b (principal); D63.1 Anemia in chronic kidney disease; N25.81 Secondary hyperparathyroidism of renal origin; Z79.899 Other long term (current) drug therapy

== ENCOUNTER → 2022-05-07 | Outpatient (CLI) | payer OTHER ==
[2022-05-07 10:37] LABS: HEMATOCRIT 38.4 % (37.0-47.0); MEAN CORPUSCULAR HGB 31.2 pg (27.0-31.0); MEAN CORPUSCULAR HGB CONC 31.5 g/dl (33.0-37.0); MEAN PLATELET VOLUME 9.9 fl (9.6-12.3); NUCLEATED RED BLOOD CELL 0.1 % (0.0-0.0); PLATELET COUNT AUTOMATED 192 10*3/uL (130-400); RED BLOOD COUNT 3.88 10*6/uL (4.10-5.10); RED CELL DISTRI WIDTH 14.2 % (0-14.5); WHITE BLOOD COUNT 35.9 10*3/uL (4.8-10.8)
[2022-05-07 10:37] LABS: BILIRUBIN Negative (Negative); BLOOD 1+ (Negative); CLARITY Clear (Clear); COLOR Yellow (Yellow); GLUCOSE Negative (Negative); KETONE Negative (Negative); LEUKO ESTERASE 1+ (Negative); NITRITE Negative (Negative); PH 6.5 (4.5-8.0); UROBILINOGEN 0.2 E.U./dl (0.0-1.0)
[2022-05-07 10:38] LABS: MANUAL DIFF REFLEX YES
[2022-05-07 10:53] LABS: CREATININE 1.42 mg/dL (0.55-1.02)
[2022-05-07 11:05] LABS: TOTAL CELLS COUNTED 100 #CELLS
[2022-05-07 11:09] LABS: URINE CREATININE RANDOM 69.3 mg/dL
[2022-05-07 11:09] LABS: PLATELET SUFFICIENCY NORMAL (NORMAL)
[2022-05-07 11:19] LABS: BACTERIA 2+
[2022-05-07 11:34] LABS: FERRITIN 77.7 ng/mL (10.0-291.0); VITAMIN D, 25-HYDROXY 29.2 ng/mL (30-100)
== END | disposition home or self-care (01) ==
LOC: LAB 10:01
PROVIDERS: ATTEND Internal Medicine Nephrology
DX: N18.32 Chronic kidney disease, stage 3b (principal); D63.1 Anemia in chronic kidney disease; N25.81 Secondary hyperparathyroidism of renal origin; Z79.899 Other long term (current) drug therapy

== ENCOUNTER → 2022-11-07 | Outpatient (CLI) | payer OTHER ==
[2022-11-07 08:21] LABS: HEMATOCRIT 40.6 % (37.0-47.0); MANUAL DIFF REFLEX YES; MEAN CELL VOLUME 97.6 fl (81.0-99.0); MEAN CORPUSCULAR HGB 29.3 pg (27.0-31.0); MEAN PLATELET VOLUME 10.8 fl (9.6-12.3); PLATELET COUNT AUTOMATED 225 10*3/uL (130-400); RED BLOOD COUNT 4.16 10*6/uL (4.10-5.10); RED CELL DISTRI WIDTH 13.8 % (0-14.5)
[2022-11-07 08:27] LABS: BILIRUBIN Negative (Negative); BLOOD Trace-Lysed (Negative); CLARITY Cloudy (Clear); COLOR Yellow (Yellow); GLUCOSE Negative (Negative); KETONE Negative (Negative); LEUKO ESTERASE 1+ (Negative); NITRITE Negative (Negative); SPECIFIC GRAVITY 1.015 (1.001-1.030); UROBILINOGEN 0.2 E.U./dl (0.0-1.0)
[2022-11-07 08:38] LABS: URINE CREATININE RANDOM 83.66 mg/dL
[2022-11-07 08:41] LABS: POTASSIUM 4.2 mmol/L (3.4-5.1)
[2022-11-07 08:42] LABS: EPITHELIAL CELLS 21-30
[2022-11-07 08:44] LABS: BACTERIA 2+; RBC 16-20 rbc/hpf (0-2); WBC 21-30 wbc/hpf (0-5)
[2022-11-07 08:44] LABS: TOTAL CELLS COUNTED 100 #CELLS
[2022-11-07 08:45] LABS: BURR CELLS FEW; OVALOCYTES FEW; PLATELET SUFFICIENCY NORMAL (NORMAL); POLYCHROMASIA SLIGHT
[2022-11-07 08:45] LABS: MUCOUS TRACE
[2022-11-07 09:34] LABS: WHITE BLOOD COUNT 42.4 10*3/uL (4.8-10.8)
== END | disposition home or self-care (01) ==
LOC: LAB 07:25
PROVIDERS: ATTEND Internal Medicine Nephrology
DX: N18.32 Chronic kidney disease, stage 3b (principal); D63.1 Anemia in chronic kidney disease; Z79.899 Other long term (current) drug therapy; N25.81 Secondary hyperparathyroidism of renal origin

== ENCOUNTER → 2023-05-08 | Outpatient (CLI) | payer OTHER ==
[2023-05-08 11:01] LABS: HEMATOCRIT 35.2 % (37.0-47.0); MEAN CELL VOLUME 95.1 fl (81.0-99.0); MEAN CORPUSCULAR HGB 31.1 pg (27.0-31.0); MEAN CORPUSCULAR HGB CONC 32.7 g/dl (33.0-37.0); MEAN PLATELET VOLUME 10.3 fl (9.6-12.3); PLATELET COUNT AUTOMATED 207 10*3/uL (130-400); RED CELL DISTRI WIDTH 13.2 % (0-14.5); WHITE BLOOD COUNT 36.7 10*3/uL (4.8-10.8)
[2023-05-08 11:02] LABS: BILIRUBIN Negative (Negative); BLOOD 1+ (Negative); CLARITY Cloudy (Clear); COLOR Yellow (Yellow); GLUCOSE Negative (Negative); KETONE Negative (Negative); LEUKO ESTERASE 3+ (Negative); NITRITE Negative (Negative); PH 5.5 (4.5-8.0); SPECIFIC GRAVITY 1.015 (1.001-1.030)
[2023-05-08 11:06] LABS: MANUAL DIFF REFLEX YES
[2023-05-08 11:09] LABS: URINE CREATININE RANDOM 124.06 mg/dL
[2023-05-08 11:11] LABS: BACTERIA 1+; WBC TNTC wbc/hpf (0-5)
[2023-05-08 11:42] LABS: POTASSIUM 4.7 mmol/L (3.4-5.1)
[2023-05-08 11:45] LABS: VITAMIN D, 25-HYDROXY 62.6 ng/mL (30-100)
[2023-05-08 11:58] LABS: ATYPICAL LYMPHS 3 % (0-0); TOTAL CELLS COUNTED 100 #CELLS
[2023-05-08 12:00] LABS: OVALOCYTES FEW; PLATELET SUFFICIENCY NORMAL (NORMAL); POLYCHROMASIA SLIGHT
== END | disposition home or self-care (01) ==
LOC: LAB 10:30
PROVIDERS: ATTEND Internal Medicine Nephrology
DX: N18.32 Chronic kidney disease, stage 3b (principal); D63.1 Anemia in chronic kidney disease; N25.81 Secondary hyperparathyroidism of renal origin; Z79.899 Other long term (current) drug therapy

== ENCOUNTER 2023-06-19 17:16 | Emergency (ER) | payer OTHER ==
[~2023-06-19] VITALS: Ht 157.4 cm; Wt 111.1 kg
[2023-06-19] MEDS ORDERED: HYDRALAZINE HYD50 MG PO (18:09)
[2023-06-19] MEDS ORDERED: POTASSIUM CHLO20 ME4 PO (18:10)
[2023-06-19 19:07] LABS: BILIRUBIN Negative (Negative); BLOOD Trace-Lysed (Negative); CLARITY Clear (Clear); COLOR Yellow (Yellow); GLUCOSE 3+ (Negative); KETONE Negative (Negative); LEUKO ESTERASE Negative (Negative); NITRITE Negative (Negative); PH 6.5 (4.5-8.0)
[2023-06-19 19:58] LABS: HEMATOCRIT 38.3 % (37.0-47.0); MEAN CELL VOLUME 91.4 fl (81.0-99.0); MEAN CORPUSCULAR HGB 30.5 pg (27.0-31.0); MEAN CORPUSCULAR HGB CONC 33.4 g/dl (33.0-37.0); MEAN PLATELET VOLUME 11.3 fl (9.6-12.3); PLATELET COUNT AUTOMATED 133 10*3/uL (130-400); RED BLOOD COUNT 4.19 10*6/uL (4.10-5.10); RED CELL DISTRI WIDTH 12.5 % (0-14.5); WHITE BLOOD COUNT 34.7 10*3/uL (4.8-10.8)
[2023-06-19 20:05] LABS: MANUAL DIFF REFLEX YES
[2023-06-19 20:24] LABS: POTASSIUM 4.1 mmol/L (3.4-5.1); TOTAL PROTEIN 6.8 gm/dL (6.0-8.0)
[2023-06-19 20:58] LABS: PLATELET SUFFICIENCY NORMAL (NORMAL); TOTAL CELLS COUNTED 100 #CELLS
[2023-06-19 20:59] LABS: ROULEAUX SLIGHT
[2023-06-19 21:00] LABS: OVALOCYTES FEW
== END 2023-06-20 00:18 | disposition home or self-care (01) ==
LOC: ED 17:16
PROVIDERS: Emergency Medicine; Internal Medicine
DX: E11.65 Type 2 diabetes mellitus with hyperglycemia (principal); C91.10 Chronic lymphocytic leukemia of B-cell type not having achieved remission; E11.22 Type 2 diabetes mellitus with diabetic chronic kidney disease; I13.0 Hypertensive heart and chronic kidney disease with heart failure and stage 1 through stage 4 chronic kidney disease, or unspecified chronic kidney disease; N18.4 Chronic kidney disease, stage 4 (severe); I50.9 Heart failure, unspecified; M10.9 Gout, unspecified; I48.91 Unspecified atrial fibrillation; K21.9 Gastro-esophageal reflux disease without esophagitis; Z88.5 Allergy status to narcotic agent; Z98.890 Other specified postprocedural states; Z79.899 Other long term (current) drug therapy

== ENCOUNTER 2023-11-25 06:03 | Emergency (ER) | payer MEDICARE, OTHER ==
[~2023-11-25] VITALS: Ht 162.5 cm; Wt 114.8 kg
[~2023-11-25 06:03] MED LIST changes: +CLARITIN10 MG PO; +LISINOPRIL40 MG PO; +MAGNESIUM400 M1 PO; +OMNICEF300 MG PO; +POTASSIUM CHLO20 ME4 PO; +SPIRONOLACTONE50 M1 PO
== END 2023-11-25 08:05 | disposition short-term general hospital (02) ==
LOC: ED 06:03
DX: M17.12 Unilateral primary osteoarthritis, left knee (principal); F32.A Depression, unspecified; D64.9 Anemia, unspecified; I48.91 Unspecified atrial fibrillation; K21.9 Gastro-esophageal reflux disease without esophagitis; F03.90 Unspecified dementia, unspecified severity, without behavioral disturbance, psychotic disturbance, mood disturbance, and anxiety; E11.65 Type 2 diabetes mellitus with hyperglycemia; E78.5 Hyperlipidemia, unspecified; M10.9 Gout, unspecified; E11.22 Type 2 diabetes mellitus with diabetic chronic kidney disease; N18.32 Chronic kidney disease, stage 3b; I13.0 Hypertensive heart and chronic kidney disease with heart failure and stage 1 through stage 4 chronic kidney disease, or unspecified chronic kidney disease; I50.9 Heart failure, unspecified; Z88.5 Allergy status to narcotic agent; Z90.49 Acquired absence of other specified parts of digestive tract; Z98.890 Other specified postprocedural states

== ENCOUNTER 2023-12-03 10:43 | Emergency (ER) | payer MEDICARE, OTHER ==
[~2023-12-03] VITALS: Wt 119.4 kg
[2023-12-03 11:09] LABS: HEMATOCRIT 23.8 % (37.0-47.0); MEAN CELL VOLUME 105.3 fl (81.0-99.0); MEAN CORPUSCULAR HGB 29.6 pg (27.0-31.0); MEAN CORPUSCULAR HGB CONC 28.2 g/dl (33.0-37.0); MEAN PLATELET VOLUME 10.4 fl (9.6-12.3); PLATELET COUNT AUTOMATED 141 10*3/uL (130-400); RED BLOOD COUNT 2.26 10*6/uL (4.10-5.10); RED CELL DISTRI WIDTH 17.5 % (0-14.5); WHITE BLOOD COUNT 11.9 10*3/uL (4.8-10.8)
[2023-12-03 11:11] LABS: MANUAL DIFF REFLEX YES
[2023-12-03 11:27] LABS: OVALOCYTES FEW; PLATELET SUFFICIENCY NORMAL (NORMAL); POLYCHROMASIA SLIGHT; ROULEAUX SLIGHT; SCHISTOCYTES FEW; TOTAL CELLS COUNTED 100 #CELLS
[2023-12-03 11:34] LABS: POTASSIUM 4.4 mmol/L (3.4-5.1)
[2023-12-03] MEDS ORDERED: SODIUM CHLORIDE 0.9% 500 ML IV ONE (12:11)
[2023-12-03 16:51] LABS: HEMATOCRIT 28.5 % (37.0-47.0); MEAN CELL VOLUME 104.8 fl (81.0-99.0); MEAN CORPUSCULAR HGB 30.1 pg (27.0-31.0); MEAN CORPUSCULAR HGB CONC 28.8 g/dl (33.0-37.0); MEAN PLATELET VOLUME 10.7 fl (9.6-12.3); NUCLEATED RED BLOOD CELL 0.1 % (0.0-0.0); PLATELET COUNT AUTOMATED 137 10*3/uL (130-400); RED BLOOD COUNT 2.72 10*6/uL (4.10-5.10); RED CELL DISTRI WIDTH 18.4 % (0-14.5); WHITE BLOOD COUNT 15.8 10*3/uL (4.8-10.8)
[2023-12-03 16:53] LABS: MANUAL DIFF REFLEX YES
[2023-12-03 17:28] LABS: PLATELET SUFFICIENCY NORMAL (NORMAL); TOTAL CELLS COUNTED 100 #CELLS
[2023-12-03 17:29] LABS: BURR CELLS FEW; POLYCHROMASIA SLIGHT
== END 2023-12-03 17:23 | disposition home or self-care (01) ==
LOC: ED 10:43
PROVIDERS: Internal Medicine
DX: D64.9 Anemia, unspecified (principal); E11.9 Type 2 diabetes mellitus without complications; I11.0 Hypertensive heart disease with heart failure; I50.9 Heart failure, unspecified; M10.9 Gout, unspecified; I48.91 Unspecified atrial fibrillation; K21.9 Gastro-esophageal reflux disease without esophagitis; Z88.5 Allergy status to narcotic agent; Z90.49 Acquired absence of other specified parts of digestive tract; Z98.890 Other specified postprocedural states

== ENCOUNTER → 2023-12-14 | Outpatient (CLI) | payer MEDICARE, OTHER | END | disposition home or self-care (01) | LOC: ORTHO 01:25 | PROVIDERS: ATTEND Orthopaedic Surgery | DX: M17.12 Unilateral primary osteoarthritis, left knee (principal) ==